=== PATIENT | female | born 1975 ===

== ENCOUNTER 2023-06-22 07:54 | Day surgery (SDC) | payer OTHER ==
[~2023-06-22] VITALS: Ht 160 cm; Wt 72.6 kg
[2023-06-22] MEDS ORDERED: BAYER ASPIRIN E81 MG PO (08:06)
[2023-06-22] MEDS ORDERED: NEURONTIN800 MG PO (08:07)
[2023-06-22] MEDS ORDERED: MOTRIN800 MG PO (08:07)
[2023-06-22] MEDS ORDERED: BUSPAR15 M1 PO (08:08)
[2023-06-22] MEDS ORDERED: TOPAMAX50 M1 PO (08:08)
[2023-06-22] MEDS ORDERED: SEROQUEL100 MG PO (08:09)
[2023-06-22] MEDS ORDERED: PAROXETINE10 MG PO (08:10)
[2023-06-22] MEDS ORDERED: TRAZODONE100 MG PO (08:10)
[2023-06-22] MEDS ORDERED: CLONIDINE0.1 MG PO (08:11)
[2023-06-22] MEDS ORDERED: BUPRENORPHIN8 MG SL (08:13)
[2023-06-22] MEDS ORDERED: ATORVASTATIN CA20 MG PO (08:15)
[2023-06-22] MEDS ORDERED: LOPRESSOR25 MG PO (08:15)
[2023-06-22] MEDS ORDERED: LISINOPRIL5 MG PO (08:15)
[2023-06-22] MEDS ORDERED: SPIRONO/HCTZ PO (08:16)
[2023-06-22] MEDS ORDERED: ISOSORBIDE DINI30 MG PO (08:17)
[2023-06-22] MEDS ORDERED: NITROSTAT0.4 MG SL (08:18)
[2023-06-22 10:28] VITALS: BP 153/87
== END 2023-06-22 10:05 | disposition home or self-care (01) ==
LOC: ORM 07:54
PROVIDERS: ATTEND Student in an Organized Health Care Education/Training Program
DX: G89.4 Chronic pain syndrome (principal); M54.9 Dorsalgia, unspecified; M54.2 Cervicalgia; G62.9 Polyneuropathy, unspecified; M79.18 Myalgia, other site; Z79.899 Other long term (current) drug therapy; M54.16 Radiculopathy, lumbar region
CPT/HCPCS: J1100; Q9967